=== PATIENT | male | born 1990 | race Caucasian/White ===

== ENCOUNTER 2020-06-28 10:52 | Emergency (ER) | payer SELFPAY ==
[2020-06-28 11:03] VITALS: BP 136/73
[2020-06-28] MEDS ORDERED: KETOROLAC TROMETHAMINE 60 MG/2 ML SDV IM ONE (11:14)
--- NOTE | 2020-06-28 11:20 | ER Document Report ---
HPI - HPI Time Seen by Provider: 06/28/20 11:11 Pain Level: 4 Notes: 29-year-old male presents to the emergency to room today for right upper teeth pain for the last 4 days. Patient reports that he did fall hitting his teeth, he did fracture #2 through 4, his dentist said that he will start on antibiotics and will do repair. Patient was already at the hospital due to his giving so he figured he might as well get checked out. Reports pain is 4 out of 5, throbbing achy. Has not tried any [id number] pain medications. Patient is an active smoker. Denies fevers, chills, chest pain,palpitations, shortness of breath, dyspnea, nausea, vomiting, diarrhea, abdominal pain, hematuria,blurred vision, double vision, loss of vision, speech changes, LH, dizziness, syncope, headaches, wheezing, ST, URI, neck pain, weakness, bowel or bladder dysfunction, saddle anesthesia, numbness or tingling in bilateral upper or lower extremities equally, muscle paralysis, weakness in bilateral upper or lower extremities equally or rash. Denies IV drug use. - EENT EENT: REPORTS: Ear Pain Past Medical History - General Information source: Patient - Social History Smoking Status: Current Every Day Smoker Family History: CAD, Hyperlipidemia, Hypertension Musculoskeletal Medical History: Reports Hx Musculoskeletal Deformity, Reports Hx Musculoskeletal Trauma Vertical Provider Document - CONSTITUTIONAL Agree With Documented VS: Yes Exam Limitations: No Limitations General Appearance: WD/WN Notes: MEDICATIONS: I agree with the patient medications as charted by the RN. ALLERGIES: I agree with the allergies as charted by the RN. PAST MEDICAL HISTORY/PAST SURGICAL HISTORY: Reviewed and agree as charted by RN. SOCIAL HISTORY: Reviewed and agree as charted by RN. FAMILY HISTORY: No significant familial comorbid conditions directly related to patient complaint EXAM: Reviewed vital signs as charted by RN. PHYSICAL EXAMINATION:reviewed vital signs by RN GENERAL: Well-appearing, well-nourished and in no acute distress. HEAD: Atraumatic, normocephalic. EYES: Pupils equal round and reactive to light, extraocular movements intact, sclera anicteric, conjunctiva are normal. ENT: Nares patent, oropharynx clear without exudates. Moist mucous membranes. TM with effusion bilaterally, no erythema. TMs intact. #1-4 gingiva with swelling, erythema, without induration. No drainage or open wounds. No fluctuance. No facial swelling. Poor oral dentition, right upper jaw with moderate dental caries, no definite swelling or effusion. no trismus noted. Uvula is midline NECK: Normal range of motion, supple without lymphadenopathy LUNGS: Breath sounds clear to auscultation bilaterally and equal. No wheezes r ales or rhonchi. HEART: Regular rate and rhythm without murmurs ABDOMEN: Soft, nontender, nondistended abdomen. No guarding, no rebound. No masses appreciated. Musculoskeletal: Normal range of motion, no pitting or edema. No cyanosis. NEUROLOGICAL: Cranial nerves grossly intact. Normal speech, normal gait. Normal sensory, motor exams PSYCH: Normal mood, normal affect. SKIN: Warm, Dry, normal turgor, no rashes or lesions noted. - INFECTION CONTROL TRAVEL OUTSIDE OF THE [place] IN LAST 30 DAYS: No Course - Re-evaluation Re-evalutation: 06/28/20 12:21 Afebrile vital stable no distress. Nurses notes reviewed. Patient given 60 mg of Toradol IM and started on clindamycin as well as following up with a dentist in the next 24 to 48 hours. Advised to eat a soft food diet. Alternate between Tylenol and prescribed naproxen for pain control. Apply heat 20 minutes on 20 minutes off several times a day. After performing a Medical Screening Examination, I estimate there is LOW risk for a DEEP SPACE INFECTION (e.g., SALEEM'S ANGINA OR RETROPHARYNGEAL ABSCESS), MENINGITIS, INTRACRANIAL HEMORRHAGE, or AIRWAY COMPROMISE, thus I consider the discharge disposition reasonable. Also, there is no evidence or peritonitis, sepsis, or toxicity. I have reevaluated this patient multiple times and no significant life threatening changes are noted. The patient and I have discussed the diagnosis and risks, and we agree with discharging home with close follow-up with the understanding that symptoms and presentations can change. We also discussed returning to the Emergency Department immediately if new or worsening symptoms occur. We have discussed the symptoms which are most concerning (e.g., changing or worsening pain, trouble swallowing or breathing, neck stiffness or fever) that necessitate immediate return. - Vital Signs Vital signs: Temp Pulse Resp BP Pulse Ox 98.3 F 76 18 136/73 H 100 06/28/20 11:03 06/28/20 11:03 06/28/20 11:03 06/28/20 11:03 06/28/20 11:03 Discharge - Discharge Clinical Impression: Dental decay, Toothache Condition: Stable Disposition: HOME, SELF-CARE Instructions: [facility], Clindamycin ([facility]), Toothache ([facility]) Additional Instructions: Dental Infection or Abscess You have an infection, perhaps an abscess (pus formation) of the gum around one of your teeth, which is probably decayed. If there is an abscess, it may drain on its own or it may need to be opened or lanced. Severe swelling or drainage around a tooth usually means a deep dental abscess which usually requires evaluation and treatment by a dentist or oral surgeon. Antibiotics may be prescribed while awaiting dental treatment. If you develop high fever with chills, worsening pain, or increasing swelling in the area, see a dentist or oral surgeon immediately or return to the Emergency Department immediately. Return immediately for any new or worsening symptoms. Follow up with primary care provider, call tomorrow to make followup appointment. Prescriptions: Clindamycin HCl 300 mg PO Q6H #28 capsule Naproxen 500 mg PO BID #10 tablet Forms: Return to Work Referrals: BOLIVAR MCCORMACK MD [ACTIVE STAFF] - Follow up as needed
== END 2020-06-28 11:29 | disposition home or self-care (01) ==
LOC: ER 10:52
DX: K02.9 Dental caries, unspecified (principal); K08.9 Disorder of teeth and supporting structures, unspecified; F17.200 Nicotine dependence, unspecified, uncomplicated
CPT/HCPCS: 99284; 96372; J1885